=== PATIENT | female | born 1945 | race Caucasian/White ===

== ENCOUNTER 2022-12-21 13:03 | Inpatient (IN) | payer MEDICARE, OTHER ==
[~2022-12-21 13:03] MED LIST: Iopamidol 370 76% 100 ML VIAL ONE
[2022-12-21 14:11] LABS: #Basophils 0.1 10x3/uL (0.0-0.2); #Monocytes 0.9 10x3/uL (0.0-1.1); #Neutrophils 12.3 10x3/uL (1.5-8.4); %Basophils 0.3 % (0.0-2.0); %Eosinophils 0.1 % (0.0-6.0); %Lymphocytes 16.1 % (18.0-47.0); %Monocytes 5.5 % (0.0-10.0); %Neutrophils 77.6 % (40.0-75.0); Hematocrit 39.2 % (34.9-44.5); Hemoglobin 12.6 g/dL (12.0-15.5); Mean Corpuscular HGB CONC 32.1 g/dL (32.0-36.0); Mean Corpuscular Hemoglobin 25.5 pg (27.0-33.0); Mean Corpuscular Volume 79.2 fl (81.6-98.3); Mean Platelet Volume 9.5 fl (7.4-10.4); Platelet Count 299 10x3/uL (150-450); RBC Distribution Width 16.2 % (11.5-14.5); Red Blood Cell (RBC) Count 4.95 10x6/uL (3.90-5.03); White Blood Cell (WBC) Count 15.9 10x3/uL (3.5-10.5)
[2022-12-21 14:21] LABS: ALT (SGPT) 34 U/L (8-55); AST (SGOT) 83 U/L (5-34); Albumin 3.2 g/dL (3.4-4.8); Alkaline Phosphatase 122 U/L (40-110); Anion Gap 20 mmol/L (10-20); BUN (Urea Nitrogen) 21 mg/dL (9.8-20.1); Bilirubin, Total 1.9 mg/dL (0.2-1.2); Calc. Creatinine Clearance 0 mL/min (70-130); Calcium 8.6 mg/dL (7.8-10.44); Carbon Dioxide 16 mmol/L (23-31); Chloride 106 mmol/L (98-107); Estimated GFR 74; Globulin 2.5 g/dL (2.4-3.5); Glucose 120 mg/dL (83-110); Potassium 3.5 mmol/L (3.5-5.1); Protein, Total 5.7 g/dL (5.8-8.1); Sodium 138 mmol/L (136-145)
[2022-12-21 14:25] LABS: Actual Bicarbonate (HCO3v) 17.2 mEq/L (22-28); Base Excess -4.3 mEq/L (-2 - +2); Calcium, Ionized (venous) 1.05 mmol/L (1.16-1.32); Chloride (VBG) 105 mmol/L (98-106); Hematocrit-VBG 41 % (36.0-47.0); Hemoglobin (Hb) 13.9 g/dL (11.7-16.1); Potassium (VBG) 3.26 mmol/L (3.70-5.30); Puncture Site Other Site; Sodium 135 mmol/L (133-146); Troponin I 0.012 ng/mL (< 0.028); pH (venous) 7.483 (7.32-7.43)
[2022-12-21 14:53] LABS: SARS-CoV-2 NAA Rapid Test Not Detected (NotDetected)
[2022-12-21] MEDS ORDERED: dilTIAZem 25 MG/5 ML VIAL ONE (16:05)
[2022-12-21] MEDS ORDERED: Ondansetron PF 4 MG/2 ML Vial IVP PRN (16:57)
[2022-12-21] MEDS ORDERED: dilTIAZem 25 MG/5 ML VIAL SLOW IVP SCH (20:15)
[2022-12-21] MEDS: Metoprolol Tartrate 25 MG TAB PO SCH (20:52)
[2022-12-21] MEDS: Apixaban 5 MG TAB PO SCH (20:52)
[2022-12-21] MEDS: cefTRIAXone\\ROCEPHIN 1 GM in Sodium Chloride 0.9% 100 ML IVPB SCH (20:54)
[2022-12-21] MEDS ORDERED: Potassium Chloride 20 MEQ TAB PO SCH (21:00)
[2022-12-21] MEDS ORDERED: Heparin 5,000 UNITS/ML VIAL SC SCH (21:00)
[2022-12-21] MEDS: Azithromycin 500 MG in Sodium Chloride 0.9% 250 ML 250 ML IVPB SCH (21:39)
[2022-12-22] MEDS: dilTIAZem 25 MG/5 ML VIAL SLOW IVP PRN ×2 (03:32→09:28)
[2022-12-22 04:53] LABS: #Basophils 0.1 10x3/uL (0.0-0.2); #Monocytes 0.9 10x3/uL (0.0-1.1); #Neutrophils 11.2 10x3/uL (1.5-8.4); %Basophils 0.4 % (0.0-2.0); %Eosinophils 0.2 % (0.0-6.0); %Monocytes 6.6 % (0.0-10.0); %Neutrophils 78.2 % (40.0-75.0); Hemoglobin 12.8 g/dL (12.0-15.5); Mean Corpuscular HGB CONC 31.2 g/dL (32.0-36.0); Mean Corpuscular Volume 79.9 fl (81.6-98.3); Mean Platelet Volume 9.6 fl (7.4-10.4); Platelet Count 288 10x3/uL (150-450); RBC Distribution Width 16.3 % (11.5-14.5); Red Blood Cell (RBC) Count 5.13 10x6/uL (3.90-5.03); White Blood Cell (WBC) Count 14.3 10x3/uL (3.5-10.5)
[2022-12-22 04:56] LABS: Anion Gap 16 mmol/L (10-20); BUN (Urea Nitrogen) 18 mg/dL (9.8-20.1); Calc. Creatinine Clearance 82 mL/min (70-130); Calcium 9.6 mg/dL (7.8-10.44); Carbon Dioxide 20 mmol/L (23-31); Chloride 109 mmol/L (98-107); Estimated GFR 89; Glucose 93 mg/dL (83-110); Potassium 4.2 mmol/L (3.5-5.1); Sodium 141 mmol/L (136-145)
[2022-12-22] MEDS: Furosemide 40 MG/4 ML VIAL SLOW IVP SCH ×2 (06:42→14:43)
[2022-12-22] MEDS: Apixaban 5 MG TAB PO SCH ×2 (09:09→21:00)
[2022-12-22] MEDS: Metoprolol Tartrate 25 MG TAB PO SCH ×2 (09:09→21:00)
[2022-12-22] MEDS ORDERED: Ipratropium Bromide 2.5 ml Neb NEB SCH (10:00)
[2022-12-22] MEDS ORDERED: Amiodarone In Dextrose 150 MG in Premix 1 BAG IVPB SCH (11:00)
[2022-12-22] MEDS: Amiodarone In Dextrose 360 MG in Premix 1 BAG IVPB SCH ×2 (12:02→17:23)
[2022-12-22] MEDS: Ipratropium/Albuterol 3 ML NEB NEB SCH ×3 (13:05→23:25)
[2022-12-22] MEDS: Acetaminophen 325 MG TAB PO PRN (13:30)
[2022-12-22] MEDS ORDERED: Venlafaxine HCl XR 75 MG CAP PO SCH (20:45)
[2022-12-22] MEDS: cefTRIAXone\\ROCEPHIN 1 GM in Sodium Chloride 0.9% 100 ML IVPB SCH (23:22)
[2022-12-23] MEDS: Azithromycin 500 MG in Sodium Chloride 0.9% 250 ML 250 ML IVPB SCH (00:02)
[2022-12-23 05:12] LABS: #Basophils 0.1 10x3/uL (0.0-0.2); #Eosinphils 0.3 10x3/uL (0.0-0.5); #Monocytes 0.8 10x3/uL (0.0-1.1); #Neutrophils 10.8 10x3/uL (1.5-8.4); %Basophils 0.4 % (0.0-2.0); %Eosinophils 2.1 % (0.0-6.0); %Lymphocytes 14.6 % (18.0-47.0); %Monocytes 5.3 % (0.0-10.0); %Neutrophils 76.9 % (40.0-75.0); Hematocrit 39.4 % (34.9-44.5); Hemoglobin 12.5 g/dL (12.0-15.5); Mean Corpuscular HGB CONC 31.7 g/dL (32.0-36.0); Mean Corpuscular Hemoglobin 24.8 pg (27.0-33.0); Mean Corpuscular Volume 78.2 fl (81.6-98.3); Mean Platelet Volume 9.7 fl (7.4-10.4); Platelet Count 329 10x3/uL (150-450); RBC Distribution Width 16.4 % (11.5-14.5); Red Blood Cell (RBC) Count 5.04 10x6/uL (3.90-5.03); White Blood Cell (WBC) Count 14.1 10x3/uL (3.5-10.5)
[2022-12-23 05:30] LABS: Anion Gap 13 mmol/L (10-20); BUN (Urea Nitrogen) 19 mg/dL (9.8-20.1); Calc. Creatinine Clearance 89 mL/min (70-130); Calcium 9.3 mg/dL (7.8-10.44); Carbon Dioxide 26 mmol/L (23-31); Chloride 104 mmol/L (98-107); Estimated GFR 90; Glucose 108 mg/dL (83-110); Potassium 3.4 mmol/L (3.5-5.1); Sodium 140 mmol/L (136-145)
[2022-12-23] MEDS: Furosemide 40 MG/4 ML VIAL SLOW IVP SCH ×3 (05:55→13:31)
[2022-12-23] MEDS: Ipratropium/Albuterol 3 ML NEB NEB SCH ×2 (07:55→13:00)
[2022-12-23] MEDS: Apixaban 5 MG TAB PO SCH ×2 (08:34→21:51)
[2022-12-23] MEDS: Amiodarone In Dextrose 360 MG in Premix 1 BAG IVPB SCH (08:34)
[2022-12-23] MEDS: Losartan 50 MG TAB PO SCH (08:34)
[2022-12-23] MEDS: Metoprolol Tartrate 25 MG TAB PO SCH (08:34)
[2022-12-23] MEDS: Venlafaxine HCl XR 75 MG CAP PO SCH (08:34)
[2022-12-23] MEDS: dilTIAZem 25 MG/5 ML VIAL SLOW IVP PRN (08:40)
[2022-12-23] MEDS ORDERED: Amiodarone 200 MG TAB PO SCH (09:30)
[2022-12-23] MEDS ORDERED: methylPREDNISolone Sod Succ 40 MG VIAL IVP SCH (10:45)
[2022-12-23] MEDS ORDERED: guaiFENesin ER 600 MG TAB PO SCH (10:45)
[2022-12-23] MEDS ORDERED: Potassium Chloride 20 MEQ TAB PO SCH (13:00)
[2022-12-23] MEDS ORDERED: Lorazepam 2 MG/ML VIAL SLOW IVP SCH (13:00)
[2022-12-23] MEDS: Ipratropium Bromide 2.5 ml Neb NEB SCH ×3 (14:04→22:27)
[2022-12-23 14:13] LABS: ALV-art Gradient 88.165 mmHg (0-20); Base Excess (BEa) 5.8 mEq/L (-2.0 to +3.0); CO2 Tension 41.9 mmHg (35.0-45.0); Calcium, Ionized (arterial) 1.19 mmol/L (1.12-1.30); Carboxyhemoglobin (COHb) 0.7 gm% (0.0-3.0); Hematocrit-ABG 40 % (36.0-47.0); Hemoglobin (Hb) 13.7 g/dL (12.0-16.0); O2 Tension (PaO2), arterial 59.1 mmHg (> 70.0); Potassium - ABG Lab 3.51 mmol/L (3.70-5.30); Puncture Site RBA; pH, Arterial 7.473 (7.35-7.45)
[2022-12-23] MEDS ORDERED: cloNIDine 0.1 MG TAB PO PRN (14:21)
[2022-12-23] MEDS ORDERED: VANCOMYCIN 1.25 GM/250 ML BAG 1.25 GM in Premix 1 BAG IVPB SCH (15:15)
[2022-12-23] MEDS: Cefepime 2 GM in Sodium Chloride 0.9% 100 ML IVPB SCH (16:12)
[2022-12-23] MEDS: Amiodarone 200 MG TAB PO SCH ×2 (16:17→21:52)
[2022-12-23] MEDS ORDERED: Vancomycin 1 GM in Premix 1 BAG IVPB SCH (21:00)
[2022-12-23] MEDS: Metoprolol Tartrate 50 MG TAB PO SCH (21:51)
[2022-12-23] MEDS: guaiFENesin ER 600 MG TAB PO SCH (21:52)
[2022-12-24] MEDS: Ipratropium Bromide 2.5 ml Neb NEB SCH ×5 (02:32→21:20)
[2022-12-24 04:04] LABS: #Monocytes 0.8 10x3/uL (0.0-1.1); #Neutrophils 10.5 10x3/uL (1.5-8.4); %Basophils 0.2 % (0.0-2.0); %Eosinophils 0.2 % (0.0-6.0); %Lymphocytes 13.4 % (18.0-47.0); %Monocytes 5.7 % (0.0-10.0); %Neutrophils 79.4 % (40.0-75.0); Hematocrit 38.3 % (34.9-44.5); Mean Corpuscular HGB CONC 31.3 g/dL (32.0-36.0); Mean Corpuscular Hemoglobin 24.6 pg (27.0-33.0); Mean Corpuscular Volume 78.5 fl (81.6-98.3); Mean Platelet Volume 9.2 fl (7.4-10.4); Platelet Count 364 10x3/uL (150-450); RBC Distribution Width 16.3 % (11.5-14.5); Red Blood Cell (RBC) Count 4.88 10x6/uL (3.90-5.03); White Blood Cell (WBC) Count 13.3 10x3/uL (3.5-10.5)
[2022-12-24 04:10] LABS: Anion Gap 15 mmol/L (10-20); BUN (Urea Nitrogen) 26 mg/dL (9.8-20.1); Calc. Creatinine Clearance 92 mL/min (70-130); Calcium 9.8 mg/dL (7.8-10.44); Carbon Dioxide 25 mmol/L (23-31); Chloride 101 mmol/L (98-107); Estimated GFR 91; Glucose 102 mg/dL (83-110); Potassium 4.3 mmol/L (3.5-5.1); Sodium 137 mmol/L (136-145)
[2022-12-24] MEDS: guaiFENesin ER 600 MG TAB PO SCH ×2 (08:12→20:43)
[2022-12-24] MEDS: Amiodarone 200 MG TAB PO SCH ×3 (08:12→20:42)
[2022-12-24] MEDS: methylPREDNISolone Sod Succ 40 MG VIAL IVP SCH (08:12)
[2022-12-24] MEDS: Metoprolol Tartrate 50 MG TAB PO SCH ×2 (08:13→20:43)
[2022-12-24] MEDS: Venlafaxine HCl XR 75 MG CAP PO SCH (08:13)
[2022-12-24] MEDS: Losartan 50 MG TAB PO SCH (08:13)
[2022-12-24] MEDS: Apixaban 5 MG TAB PO SCH ×2 (08:13→20:43)
[2022-12-24] MEDS: Furosemide 40 MG/4 ML VIAL SLOW IVP SCH (08:52)
[2022-12-24] MEDS: Cefepime 2 GM in Sodium Chloride 0.9% 100 ML IVPB SCH ×2 (08:53→16:31)
[2022-12-24] MEDS ORDERED: Losartan 25 MG TAB PO SCH (09:00)
[2022-12-24] MEDS: Vancomycin 1 GM in Sodium Chloride 0.9% 250 ML 250 ML IVPB SCH (10:12)
[2022-12-24] MEDS: Acetaminophen 325 MG TAB PO PRN (13:33)
[2022-12-24] MEDS: Famotidine 20 MG TAB PO SCH (20:42)
[2022-12-25] MEDS: Ipratropium Bromide 2.5 ml Neb NEB SCH ×6 (00:05→20:40)
[2022-12-25 03:19] LABS: #Basophils 0.1 10x3/uL (0.0-0.2); #Eosinphils 0.3 10x3/uL (0.0-0.5); #Monocytes 0.8 10x3/uL (0.0-1.1); #Neutrophils 11.8 10x3/uL (1.5-8.4); %Basophils 0.4 % (0.0-2.0); %Eosinophils 1.7 % (0.0-6.0); %Lymphocytes 20.3 % (18.0-47.0); %Monocytes 4.9 % (0.0-10.0); %Neutrophils 70.6 % (40.0-75.0); Hematocrit 39.8 % (34.9-44.5); Hemoglobin 12.3 g/dL (12.0-15.5); Mean Corpuscular HGB CONC 30.9 g/dL (32.0-36.0); Mean Corpuscular Hemoglobin 24.6 pg (27.0-33.0); Mean Corpuscular Volume 79.4 fl (81.6-98.3); Mean Platelet Volume 9.2 fl (7.4-10.4); Platelet Count 397 10x3/uL (150-450); RBC Distribution Width 16.3 % (11.5-14.5); Red Blood Cell (RBC) Count 5.01 10x6/uL (3.90-5.03); White Blood Cell (WBC) Count 16.7 10x3/uL (3.5-10.5)
[2022-12-25] MEDS: Cefepime 2 GM in Sodium Chloride 0.9% 100 ML IVPB SCH ×2 (03:21→15:42)
[2022-12-25 03:23] LABS: Anion Gap 16 mmol/L (10-20); BUN (Urea Nitrogen) 33 mg/dL (9.8-20.1); Calc. Creatinine Clearance 92 mL/min (70-130); Calcium 9.8 mg/dL (7.8-10.44); Carbon Dioxide 24 mmol/L (23-31); Chloride 101 mmol/L (98-107); Estimated GFR 91; Glucose 82 mg/dL (83-110); Potassium 4.2 mmol/L (3.5-5.1); Sodium 137 mmol/L (136-145)
[2022-12-25] MEDS: Vancomycin 1 GM in Sodium Chloride 0.9% 250 ML 250 ML IVPB SCH ×2 (04:05→21:14)
[2022-12-25] MEDS: Furosemide 40 MG/4 ML VIAL SLOW IVP SCH (05:12)
[2022-12-25] MEDS: guaiFENesin ER 600 MG TAB PO SCH ×2 (08:03→21:14)
[2022-12-25] MEDS: Losartan 50 MG TAB PO SCH (08:03)
[2022-12-25] MEDS: methylPREDNISolone Sod Succ 40 MG VIAL IVP SCH (08:03)
[2022-12-25] MEDS: Metoprolol Tartrate 50 MG TAB PO SCH ×2 (08:03→21:14)
[2022-12-25] MEDS: Apixaban 5 MG TAB PO SCH ×2 (08:04→21:13)
[2022-12-25] MEDS: Amiodarone 200 MG TAB PO SCH ×3 (08:04→21:13)
[2022-12-25] MEDS: Venlafaxine HCl XR 75 MG CAP PO SCH (08:04)
[2022-12-25] MEDS: Famotidine 20 MG TAB PO SCH ×2 (08:04→21:13)
[2022-12-25] MEDS: Acetaminophen 325 MG TAB PO PRN (10:33)
[2022-12-25] MEDS ORDERED: Furosemide 40 MG/4 ML VIAL SLOW IVP SCH (16:00)
[2022-12-25 21:47] LABS: Vancomycin, Trough 9.3 ug/mL
[2022-12-26] MEDS: Ipratropium Bromide 2.5 ml Neb NEB SCH ×7 (02:30→22:09)
[2022-12-26] MEDS: Cefepime 2 GM in Sodium Chloride 0.9% 100 ML IVPB SCH ×2 (03:03→16:41)
[2022-12-26 03:47] LABS: Anion Gap 15 mmol/L (10-20); BUN (Urea Nitrogen) 42 mg/dL (9.8-20.1); Calc. Creatinine Clearance 86 mL/min (70-130); Calcium 9.5 mg/dL (7.8-10.44); Carbon Dioxide 25 mmol/L (23-31); Chloride 100 mmol/L (98-107); Estimated GFR 90; Glucose 85 mg/dL (83-110); Sodium 136 mmol/L (136-145)
[2022-12-26 03:57] LABS: Hematocrit 42.1 % (34.9-44.5); Hemoglobin 13.2 g/dL (12.0-15.5); Mean Corpuscular HGB CONC 31.4 g/dL (32.0-36.0); Mean Corpuscular Hemoglobin 25.1 pg (27.0-33.0); Mean Corpuscular Volume 80.2 fl (81.6-98.3); Mean Platelet Volume 9.2 fl (7.4-10.4); Platelet Count 426 10x3/uL (150-450); RBC Distribution Width 16.1 % (11.5-14.5); Red Blood Cell (RBC) Count 5.25 10x6/uL (3.90-5.03); White Blood Cell (WBC) Count 17.7 10x3/uL (3.5-10.5)
[2022-12-26 03:58] LABS: MDiff Complete? YES
[2022-12-26] MEDS: Furosemide 40 MG/4 ML VIAL SLOW IVP SCH (05:05)
[2022-12-26 05:36] LABS: Band 1 % (5-11); Eosinophils 2 % (0-10); Lymphocytes 17 % (21-51); Microcytosis SLIGHT = 6-15 cells (100X) (0-5/hpf); Monocytes 3 % (0-10); Neutrophil 77 % (42-75)
[2022-12-26 05:37] LABS: Platelet Adequacy Comment Appears Adequate
[2022-12-26] MEDS: Vancomycin 1 GM in Sodium Chloride 0.9% 250 ML 250 ML IVPB SCH ×2 (08:48→21:06)
[2022-12-26] MEDS: methylPREDNISolone Sod Succ 40 MG VIAL IVP SCH (08:48)
[2022-12-26] MEDS: Acetaminophen 325 MG TAB PO PRN (08:49)
[2022-12-26] MEDS: guaiFENesin ER 600 MG TAB PO SCH ×2 (08:49→21:07)
[2022-12-26] MEDS: Amiodarone 200 MG TAB PO SCH ×2 (08:49→21:07)
[2022-12-26] MEDS: Venlafaxine HCl XR 75 MG CAP PO SCH (08:49)
[2022-12-26] MEDS: Losartan 50 MG TAB PO SCH (08:49)
[2022-12-26] MEDS: Metoprolol Tartrate 50 MG TAB PO SCH ×2 (08:49→21:07)
[2022-12-26] MEDS: Apixaban 5 MG TAB PO SCH ×2 (08:51→21:07)
[2022-12-26] MEDS: Famotidine 20 MG TAB PO SCH ×2 (08:51→21:07)
[2022-12-27] MEDS: Ipratropium Bromide 2.5 ml Neb NEB SCH ×6 (02:57→23:01)
[2022-12-27] MEDS: Cefepime 2 GM in Sodium Chloride 0.9% 100 ML IVPB SCH ×2 (03:35→15:24)
[2022-12-27 04:37] LABS: #Basophils 0.1 10x3/uL (0.0-0.2); #Eosinphils 0.2 10x3/uL (0.0-0.5); #Monocytes 0.8 10x3/uL (0.0-1.1); #Neutrophils 15.2 10x3/uL (1.5-8.4); %Basophils 0.6 % (0.0-2.0); %Eosinophils 0.7 % (0.0-6.0); %Lymphocytes 19.8 % (18.0-47.0); %Monocytes 3.5 % (0.0-10.0); %Neutrophils 71.4 % (40.0-75.0); Hematocrit 44.1 % (34.9-44.5); Hemoglobin 13.7 g/dL (12.0-15.5); Mean Corpuscular HGB CONC 31.1 g/dL (32.0-36.0); Mean Corpuscular Hemoglobin 24.6 pg (27.0-33.0); Mean Corpuscular Volume 79.3 fl (81.6-98.3); Mean Platelet Volume 9.5 fl (7.4-10.4); Platelet Count 531 10x3/uL (150-450); RBC Distribution Width 16.4 % (11.5-14.5); Red Blood Cell (RBC) Count 5.56 10x6/uL (3.90-5.03); White Blood Cell (WBC) Count 21.3 10x3/uL (3.5-10.5)
[2022-12-27 05:37] LABS: Anion Gap 15 mmol/L (10-20); BUN (Urea Nitrogen) 37 mg/dL (9.8-20.1); Calc. Creatinine Clearance 77 mL/min (70-130); Calcium 9.8 mg/dL (7.8-10.44); Carbon Dioxide 27 mmol/L (23-31); Chloride 101 mmol/L (98-107); Estimated GFR 83; Glucose 81 mg/dL (83-110); Potassium 4.9 mmol/L (3.5-5.1); Sodium 138 mmol/L (136-145)
[2022-12-27] MEDS: Furosemide 40 MG/4 ML VIAL SLOW IVP SCH (05:39)
[2022-12-27] MEDS: Venlafaxine HCl XR 75 MG CAP PO SCH (08:15)
[2022-12-27] MEDS: Losartan 50 MG TAB PO SCH (08:16)
[2022-12-27] MEDS: Famotidine 20 MG TAB PO SCH ×2 (08:16→21:11)
[2022-12-27] MEDS: Amiodarone 200 MG TAB PO SCH ×2 (08:16→21:12)
[2022-12-27] MEDS: Apixaban 5 MG TAB PO SCH ×2 (08:16→21:11)
[2022-12-27] MEDS: guaiFENesin ER 600 MG TAB PO SCH ×2 (08:16→21:12)
[2022-12-27] MEDS: Metoprolol Tartrate 50 MG TAB PO SCH ×2 (08:16→21:12)
[2022-12-27] MEDS: Vancomycin 1 GM in Sodium Chloride 0.9% 250 ML 250 ML IVPB SCH ×2 (08:17→21:12)
[2022-12-27] MEDS: methylPREDNISolone Sod Succ 40 MG VIAL IVP SCH (08:17)
[2022-12-27 08:37] LABS: Vancomycin, Trough 18.5 ug/mL
[2022-12-28] MEDS: Ipratropium Bromide 2.5 ml Neb NEB SCH ×6 (02:54→22:30)
[2022-12-28] MEDS: Cefepime 2 GM in Sodium Chloride 0.9% 100 ML IVPB SCH ×2 (04:27→15:12)
[2022-12-28 04:30] LABS: Anion Gap 16 mmol/L (10-20); BUN (Urea Nitrogen) 39 mg/dL (9.8-20.1); Calc. Creatinine Clearance 88 mL/min (70-130); Calcium 9.6 mg/dL (7.8-10.44); Carbon Dioxide 24 mmol/L (23-31); Chloride 100 mmol/L (98-107); Estimated GFR 89; Glucose 80 mg/dL (83-110); Potassium 4.5 mmol/L (3.5-5.1); Sodium 135 mmol/L (136-145)
[2022-12-28 04:33] LABS: #Basophils 0.2 10x3/uL (0.0-0.2); #Eosinphils 0.2 10x3/uL (0.0-0.5); #Monocytes 0.8 10x3/uL (0.0-1.1); #Neutrophils 15.9 10x3/uL (1.5-8.4); %Basophils 0.9 % (0.0-2.0); %Eosinophils 0.7 % (0.0-6.0); %Lymphocytes 18.8 % (18.0-47.0); %Monocytes 3.7 % (0.0-10.0); %Neutrophils 71.6 % (40.0-75.0); Hematocrit 44.4 % (34.9-44.5); Hemoglobin 13.8 g/dL (12.0-15.5); Mean Corpuscular HGB CONC 31.1 g/dL (32.0-36.0); Mean Corpuscular Hemoglobin 25.2 pg (27.0-33.0); Mean Platelet Volume 9.1 fl (7.4-10.4); Platelet Count 465 10x3/uL (150-450); RBC Distribution Width 16.1 % (11.5-14.5); Red Blood Cell (RBC) Count 5.48 10x6/uL (3.90-5.03); White Blood Cell (WBC) Count 22.2 10x3/uL (3.5-10.5)
[2022-12-28] MEDS: Furosemide 40 MG/4 ML VIAL SLOW IVP SCH (05:37)
[2022-12-28] MEDS: Famotidine 20 MG TAB PO SCH ×2 (08:29→21:58)
[2022-12-28] MEDS: Amiodarone 200 MG TAB PO SCH ×2 (08:29→21:58)
[2022-12-28] MEDS: Losartan 50 MG TAB PO SCH (08:29)
[2022-12-28] MEDS: Venlafaxine HCl XR 75 MG CAP PO SCH (08:29)
[2022-12-28] MEDS: guaiFENesin ER 600 MG TAB PO SCH ×2 (08:29→21:58)
[2022-12-28] MEDS: Metoprolol Tartrate 50 MG TAB PO SCH ×2 (08:29→22:08)
[2022-12-28] MEDS: Apixaban 5 MG TAB PO SCH ×2 (08:29→21:58)
[2022-12-28] MEDS: Vancomycin 1 GM in Sodium Chloride 0.9% 250 ML 250 ML IVPB SCH ×2 (08:30→22:39)
[2022-12-28 21:48] LABS: Vancomycin, Trough 22.9 ug/mL
[2022-12-28] MEDS: Vancomycin HCl 750 MG in Sodium Chloride 0.9% 250 ML 250 ML IVPB SCH (22:01)
[2022-12-29] MEDS: Ipratropium Bromide 2.5 ml Neb NEB SCH ×5 (02:30→20:53)
[2022-12-29] MEDS: Cefepime 2 GM in Sodium Chloride 0.9% 100 ML IVPB SCH ×2 (04:03→17:16)
[2022-12-29 04:36] LABS: #Basophils 0.2 10x3/uL (0.0-0.2); #Eosinphils 0.4 10x3/uL (0.0-0.5); #Monocytes 0.7 10x3/uL (0.0-1.1); #Neutrophils 12.9 10x3/uL (1.5-8.4); %Basophils 0.8 % (0.0-2.0); %Eosinophils 1.9 % (0.0-6.0); %Lymphocytes 22.1 % (18.0-47.0); %Monocytes 3.6 % (0.0-10.0); %Neutrophils 66.8 % (40.0-75.0); Hematocrit 42.5 % (34.9-44.5); Hemoglobin 13.2 g/dL (12.0-15.5); Mean Corpuscular HGB CONC 31.1 g/dL (32.0-36.0); Mean Corpuscular Volume 80.5 fl (81.6-98.3); Mean Platelet Volume 8.9 fl (7.4-10.4); Platelet Count 397 10x3/uL (150-450); RBC Distribution Width 16.2 % (11.5-14.5); Red Blood Cell (RBC) Count 5.28 10x6/uL (3.90-5.03); White Blood Cell (WBC) Count 19.4 10x3/uL (3.5-10.5)
[2022-12-29 04:49] LABS: Anion Gap 14 mmol/L (10-20); BUN (Urea Nitrogen) 36 mg/dL (9.8-20.1); Calc. Creatinine Clearance 84 mL/min (70-130); Calcium 9.1 mg/dL (7.8-10.44); Carbon Dioxide 24 mmol/L (23-31); Chloride 103 mmol/L (98-107); Estimated GFR 87; Glucose 71 mg/dL (83-110); Potassium 4.5 mmol/L (3.5-5.1); Sodium 136 mmol/L (136-145)
[2022-12-29] MEDS: Furosemide 40 MG/4 ML VIAL SLOW IVP SCH (06:09)
[2022-12-29] MEDS: guaiFENesin ER 600 MG TAB PO SCH ×2 (09:49→20:30)
[2022-12-29] MEDS: Losartan 50 MG TAB PO SCH (09:49)
[2022-12-29] MEDS: Metoprolol Tartrate 50 MG TAB PO SCH ×2 (09:49→20:30)
[2022-12-29] MEDS: Famotidine 20 MG TAB PO SCH (09:49)
[2022-12-29] MEDS: Venlafaxine HCl XR 75 MG CAP PO SCH (09:49)
[2022-12-29] MEDS: Vancomycin HCl 750 MG in Sodium Chloride 0.9% 250 ML 250 ML IVPB SCH ×2 (09:49→22:01)
[2022-12-29] MEDS: Apixaban 5 MG TAB PO SCH ×2 (09:49→20:30)
[2022-12-29] MEDS: Amiodarone 200 MG TAB PO SCH ×2 (09:49→20:30)
[2022-12-30 03:53] LABS: Hematocrit 41.8 % (34.9-44.5); Hemoglobin 13.1 g/dL (12.0-15.5); Mean Corpuscular HGB CONC 31.3 g/dL (32.0-36.0); Mean Corpuscular Hemoglobin 25.3 pg (27.0-33.0); Mean Corpuscular Volume 80.7 fl (81.6-98.3); Mean Platelet Volume 9.4 fl (7.4-10.4); Platelet Count 392 10x3/uL (150-450); RBC Distribution Width 16.5 % (11.5-14.5); Red Blood Cell (RBC) Count 5.18 10x6/uL (3.90-5.03); White Blood Cell (WBC) Count 15.6 10x3/uL (3.5-10.5)
[2022-12-30 03:57] LABS: MDiff Complete? YES
[2022-12-30] MEDS: Cefepime 2 GM in Sodium Chloride 0.9% 100 ML IVPB SCH (04:13)
[2022-12-30 04:19] LABS: Anion Gap 15 mmol/L (10-20); BUN (Urea Nitrogen) 34 mg/dL (9.8-20.1); Calc. Creatinine Clearance 81 mL/min (70-130); Calcium 8.9 mg/dL (7.8-10.44); Carbon Dioxide 21 mmol/L (23-31); Chloride 104 mmol/L (98-107); Estimated GFR 80; Glucose 79 mg/dL (83-110); Microcytosis SLIGHT = 6-15 cells (100X) (0-5/hpf); Platelet Adequacy Comment Appears Adequate; Potassium 4.3 mmol/L (3.5-5.1); Sodium 136 mmol/L (136-145)
[2022-12-30 04:20] LABS: Band 6 % (5-11); Eosinophils 3 % (0-10); Lymphocytes 27 % (21-51); Monocytes 6 % (0-10); Neutrophil 58 % (42-75)
[2022-12-30 04:41] VITALS: BMI 34.4
[2022-12-30] MEDS: Furosemide 40 MG/4 ML VIAL SLOW IVP SCH (06:14)
[2022-12-30] MEDS: Ipratropium Bromide 2.5 ml Neb NEB SCH ×4 (06:41→16:12)
[2022-12-30] MEDS: guaiFENesin ER 600 MG TAB PO SCH (10:24)
[2022-12-30] MEDS: Apixaban 5 MG TAB PO SCH (10:24)
[2022-12-30] MEDS: Venlafaxine HCl XR 75 MG CAP PO SCH (10:24)
[2022-12-30] MEDS: Metoprolol Tartrate 50 MG TAB PO SCH (10:24)
[2022-12-30] MEDS: Amiodarone 200 MG TAB PO SCH (10:25)
[2022-12-30] MEDS: Losartan 50 MG TAB PO SCH (10:25)
[2022-12-30] MEDS: Vancomycin HCl 750 MG in Sodium Chloride 0.9% 250 ML 250 ML IVPB SCH (10:25)
[2022-12-30] MEDS ORDERED: Artificial Tear Sol 15 ML BOT EA EYE PRN (10:52)
[2022-12-30] MEDS ORDERED: GUAIFENESIN SF SOLN 200 MG/10 ML UDCUP PO PRN (10:52)
[2022-12-30] MEDS ORDERED: Moisturizing Cream (Eucerin) 113 GM JAR TOP PRN (10:52)
[2022-12-30] MEDS ORDERED: Sodium Chloride 0.65% Nasal 44 ML BOT EA NARE PRN (10:52)
[2022-12-30] MEDS ORDERED: Benzocaine/Menthol 1 LOZ LOZ PO PRN (10:52)
[2022-12-30] MEDS ORDERED: Calcium Carbonate 500 MG ChewTAB PO PRN (10:52)
[2022-12-30 11:04] LABS: Vancomycin, Trough 20.7 ug/mL
[2022-12-30 13:50] VITALS: BP 135/63; TEMP 97.9
[2022-12-30] MEDS ORDERED: VANCOMYCIN 1.25 GM/250 ML BAG 1.25 GM in Premix 1 BAG IVPB SCH (18:00)
== END 2022-12-30 15:35 | disposition home or self-care (01) | DRG 871 ==
LOC: CSHERS 13:03 → CSHTELE 16:34 → CSHICU 12-23 17:02 → CSHTELE 12-28 15:58
PROVIDERS: ADMIT Internal Medicine; ATTEND Family Medicine
PROC: 3E03329 Introduction of Other Anti-infective into Peripheral Vein, Percutaneous Approach (ICD-10-PCS; principal; 2022-12-21)
PROC: 4A033R1 Measurement of Arterial Saturation, Peripheral, Percutaneous Approach (ICD-10-PCS; 2022-12-23)
PROC: 5A09357 Assistance with Respiratory Ventilation, Less than 24 Consecutive Hours, Continuous Positive Airway Pressure (ICD-10-PCS; 2022-12-24)
DX: A41.50 Gram-negative sepsis, unspecified (principal); I50.33 Acute on chronic diastolic (congestive) heart failure; J96.01 Acute respiratory failure with hypoxia; J15.69 Pneumonia due to other Gram-negative bacteria; E78.00 Pure hypercholesterolemia, unspecified; Z98.890 Other specified postprocedural states; Z90.49 Acquired absence of other specified parts of digestive tract; F41.9 Anxiety disorder, unspecified; F32.A Depression, unspecified; Z20.822 Contact with and (suspected) exposure to COVID-19; I48.0 Paroxysmal atrial fibrillation; K21.9 Gastro-esophageal reflux disease without esophagitis; J40 Bronchitis, not specified as acute or chronic; I11.0 Hypertensive heart disease with heart failure
CPT/HCPCS: 36415; 36600; 71045; 71275; 80048; 80053; 80202; 82805; 83880; 84484; 85025; 85379; 86769; 87081; 87633; 87635; 93005; 93010; 93306; 94660; 94760; 94762; 96372; 96374; J0283; J0456; J0692; J0696; J1650; J1940; J2060; J2920; J3370; J3490; J7050; J7620; Q9967

== ENCOUNTER 2025-02-13 16:30 | Emergency (ER) | payer MEDICARE, OTHER ==
[2025-02-13] MEDS ORDERED: dilTIAZem 25 MG/5 ML VIAL ONE (17:10)
[2025-02-13 17:19] LABS: #Basophils 0.04 10x3/uL (0.0-0.2); #Eosinophils 0.13 10x3/uL (0.0-0.5); #Monocytes 0.40 10x3/uL (0.0-1.1); #Neutrophils 6.18 10x3/uL (1.5-8.4); %Basophils 0.5 % (0.0-2.0); %Eosinophils 1.5 % (0.0-6.0); %Lymphocytes 22.8 % (18.0-47.0); %Monocytes 4.6 % (0.0-10.0); %Neutrophils 70.5 % (40.0-75.0); Hematocrit 41.8 % (34.9-44.5); Hemoglobin 12.5 g/dL (12.0-15.5); Mean Corpuscular Hemoglobin 24.3 pg (27.0-33.0); Mean Corpuscular Volume 81.3 fL (81.6-98.3); Platelet Count 269 10x3/uL (150-450); Red Blood Cell (RBC) Count 5.14 10x6/uL (3.90-5.03); White Blood Cell (WBC) Count 8.76 10x3/uL (3.5-10.5)
[2025-02-13 17:29] LABS: ALT (SGPT) Less than 7 U/L (Less than 34); AST (SGOT) 15 U/L (11-34); Albumin 2.9 g/dL (3.1-4.5); Alkaline Phosphatase 75 U/L (40-110); Anion Gap 18 mmol/L (10-20); BUN (Urea Nitrogen) 10 mg/dL (9.8-20.1); Bilirubin, Total 0.5 mg/dL (0.3-1.2); Calc. Creatinine Clearance 0 mL/min (70-130); Calcium 9.3 mg/dL (7.8-10.44); Carbon Dioxide 30 mmol/L (23-31); Chloride 96 mmol/L (98-107); Globulin 4.0 g/dL (2.4-3.5); Glucose 93 mg/dL (83-110); Potassium 3.5 mmol/L (3.5-5.1); Sodium 140 mmol/L (136-145)
[2025-02-13 17:35] LABS: Troponin I Less than 0.010 ng/mL (< 0.028)
[2025-02-13 17:39] LABS: INR-International Normal Ratio 1.1; PTT 28.8 sec (22.0-33.0); Prothrombin Time 12.1 sec (9.5-12.1)
[2025-02-13] MEDS ORDERED: Enoxaparin 60 MG (0.6 mL) SYRINGE ONE (21:50)
[2025-02-13] MEDS ORDERED: dilTIAZem 30 MG TAB PO SCH (22:00)
== END 2025-02-14 10:11 | disposition home or self-care (01) ==
LOC: CSHERS 16:30
DX: I48.20 Chronic atrial fibrillation, unspecified (principal); R60.0 Localized edema; I10 Essential (primary) hypertension
CPT/HCPCS: 71045; 71275; 80053; 83880; 84484; 85025; 85610; 85730; 93005; J1650; 93010; 96372; 96374; Q9967